=== PATIENT | female | born 1980 | race Caucasian/White ===

== ENCOUNTER 2018-06-02 19:08 | Emergency (ER) | payer OTHER, SELFPAY ==
[2018-06-02 20:08] LABS: Absolute Monocytes 0.8 K/uL (0.1-1.3); Absolute Neutrophil 6.9 K/uL (1.8-8.0); Basophils % 0.5 % (0-1.3); Eosinophils % 1.5 % (0-4.4); Hematocrit 35.8 % (36.0-45.0); Lymphocytes % 10.9 % (15.3-44.8); MPV 8.1 fL (7.6-11.3); Monocytes % 8.8 % (3.3-12.3); RBC Red Blood Cell Count 4.04 M/uL (3.86-4.86)
[2018-06-02 20:18] LABS: Bilirubin Direct 0.2 mg/dL (0-0.2); Potassium 3.6 mmol/L (3.5-5.1); Protein, Total 7.8 g/dL (6.4-8.2)
[2018-06-02] MEDS ORDERED: MORPHINE 4 MG/ML SYR ONE (20:31)
[2018-06-02] MEDS ORDERED: ONDANSETRON 4 MG/2 ML VIAL ONE (20:31)
[2018-06-02] MEDS ORDERED: NA CHLORIDE 0.9% 1,000 ML ONE ×2 (20:31→23:01)
[2018-06-02] MEDS ORDERED: FENTANYL CITR 100 MCG/2 ML ONE ×2 (20:57→22:47)
[2018-06-02] MEDS ORDERED: KETOROLAC 30 MG/ML INJ ONE (21:30)
[2018-06-02] MEDS ORDERED: NA CHLORIDE 0.9% 250 ML ONE (22:47)
[2018-06-02] MEDS ORDERED: VANCOMYCIN 1 GM/VIAL ONE (22:47)
[2018-06-02] MEDS ORDERED: GENTAMICIN SULF 80 MG/2ML INJ ONE (22:49)
[2018-06-02] MEDS ORDERED: NA CHLORIDE 0.9% 100 ML IV ONE (22:49)
--- NOTE | 2018-06-02 23:54 | ER ---
Nurse's Notes [facility] Name: Ana Garcia Age: 37 yrs Sex: Female : 1980 Arrival Date: 06/02/2018 Time: 19:12 Bed 15 Private MD: Diagnosis: intrabdominal abscess Presentation: 06/02 19:34 Presenting complaint: Patient states: ABD PAIN S/P HYSTERECTOMY. PT ON PAIN MEDICATION ak1 AT HOME. LAST BM TODAY, LIQUID ONLY. PT VOMITING STARTED TODAY. SX AT [facility] BY DR. NIXON 05/22/18. Transition of care: patient was not received from another setting of care. Onset of symptoms was June 02, 2018. Risk Assessment: Do you want to hurt yourself or someone else? Patient reports no desire to harm self or others. Initial Sepsis Screen: Does the patient meet any 2 criteria? No. Patient's initial sepsis screen is negative. Does the patient have a suspected source of infection? No. Patient's initial sepsis screen is negative. Care prior to arrival: None. 19:34 Method Of Arrival: Wheelchair ak1 19:34 Acuity: ALBER 3 ak1 Triage Assessment: 19:36 General: Appears uncomfortable, Behavior is agitated, anxious, crying, fussy. Pain: ak1 Complains of pain in abdomen. EENT: No signs and/or symptoms were reported regarding the EENT system. Neuro: No deficits noted. Cardiovascular: No deficits noted. Respiratory: No deficits noted. GI: Reports lower abdominal pain, upper abdominal pain, nausea, vomiting. : No signs and/or symptoms were reported regarding the genitourinary system. Derm: No signs and/or symptoms reported regarding the dermatologic system. Musculoskeletal: No signs and/or symptoms reported regarding the musculoskeletal system. 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 - Social history:: Smoking status: Patient/guardian denies using tobacco. - Ebola Screening: : No symptoms or risks identified at this time. Screenin:00 Abuse screen: Denies threats or abuse. Nutritional screening: No deficits noted. jb4 Tuberculosis screening: No symptoms or risk factors identified. Fall Risk IV access (20 points). Gait- Impaired (20 pts.). Assessment: 19:50 General: Appears comfortable, Behavior is cooperative, anxious, crying. Pain: Complains jb4 of pain in abdomen Pain does not radiate. Pain currently is 8 out of 10 on a pain scale. Quality of pain is described as crampy. Neuro: Level of Consciousness is awake, alert, obeys commands, Oriented to person, place, time, situation. Cardiovascular: cool/ dry skin. Respiratory: Airway is patent Respiratory effort is even, unlabored, Respiratory pattern is regular, symmetrical. GI: Bowel sounds present X 4 quads. Abd is soft X 4 quads Abdomen is tender to palpation X 4 quads. Reports cramping, diarrhea, nausea, vomiting. : No signs and/or symptoms were reported regarding the genitourinary system. EENT: No signs and/or symptoms were reported regarding the EENT system. Derm: Skin is intact, Skin is dry, Skin is pale, Skin temperature is cool. Musculoskeletal: Circulation, motion, and sensation intact. 20:45 Reassessment: No changes from previously documented assessment. Patient and/or family jb4 updated on plan of care and expected duration. Pain level reassessed. Patient is alert, oriented x 3, equal unlabored respirations, skin warm/dry/pink. Pt complaining of pain, Provider notified, See MAR for orders. 21:15 Reassessment: PT in CT, Ct called report pt is in pain, Provider notified see MAR for jb4 orders. 22:00 Reassessment: No changes from previously documented assessment. Patient and/or family jb4 updated on plan of care and expected duration. Pain level reassessed. Patient is alert, oriented x 3, equal unlabored respirations, skin warm/dry/pink. Patient states feeling better. 22:13 Reassessment: Patient and/or family updated on plan of care and expected duration. Pain jb4 level reassessed. Patient is alert, oriented x 3, equal unlabored respirations, skin warm/dry/pink. Pt reports increased pain, Provider notified. See MAR for orders. 23:25 Reassessment: No changes from previously documented assessment. Patient and/or family jb4 updated on plan of care and expected duration. Pain level reassessed. Patient is alert, oriented x 3, equal unlabored respirations, skin warm/dry/pink. Pt reports increased pain, Provider notified, See MAR for orders. Vital Signs: 19:36 BP 106 / 65; Pulse 114; Resp 22; Temp 98.1; Pulse Ox 99% on R/A; Weight 95.25 kg (R); ak1 Height 5 ft. 7 in. (170.18 cm) (R); Pain 10/10; 20:49 BP 113 / 70; Pulse 110; Resp 19; Pulse Ox 100% on R/A; mt 21:54 BP 111 / 65; Pulse 104; Resp 18; Pulse Ox 100% on R/A; mt 23:30 BP 110 / 65; Pulse 115; Resp 20; Pulse Ox 100% on R/A; jb4 06/03 00:00 BP 113 / 63; Pulse 117; Resp 20; Pulse Ox 100% on R/A; jb4 06/02 19:36 Body Mass Index 32.89 (95.25 kg, 170.18 cm) ak1 ED Course: 06/02 19:12 Patient arrived in ED. es 19:35 Triage completed. ak1 19:36 Arm band placed on Patient placed in waiting room, Patient notified of wait time. ak1 19:57 Godfrey Bee MD is Attending Physician. tw4 20:00 Tremaine Walker, RN is Primary Nurse. jb4 20:00 Patient has correct armband on for positive identification. Placed in gown. Bed in low jb4 position. Call light in reach. Side rails up X 1. Pulse ox on. NIBP on. 20:23 Inserted saline lock: 20 gauge in right antecubital area, using aseptic technique. oe 21:52 CT Abd/Pelvis - W/Contrast In Process Unspecified. EDMS 22:56 [facility]. eb 23:15 administrative approval given by Mynor Rivera/ Dr. So Palacios has accepted the eb patient in transfer/ patient is going to the [facility] / report to be called to [phone]. 06/03 00:38 No provider procedures requiring assistance completed. Patient transferred, IV remains jb4 in place. Administered Medications: 06/02 20:30 Drug: NS 0.9% 1000 ml Route: IV; Rate: 1 bolus; Site: right antecubital; jb4 22:00 Follow up: Response: No adverse reaction; IV Status: Completed infusion; IV Intake: jb4 1000ml 20:50 Drug: Zofran 4 mg Route: IVP; Site: right antecubital; jb4 23:54 Follow up: Response: No adverse reaction; Nausea is decreased jb4 20:52 Drug: fentaNYL (PF) 50 mcg Route: IVP; Site: right antecubital; jb4 23:58 Follow up: Response: No adverse reaction; Pain is decreased jb4 21:25 Drug: TORadol 30 mg Route: IVP; Site: right antecubital; jb4 06/03 00:00 Follow up: Response: No adverse reaction; Pain is decreased jb4 06/02 22:32 Drug: fentaNYL (PF) 50 mcg Route: IVP; Site: right antecubital; jb4 06/03 00:25 Follow up: Response: No adverse reaction; Pain is decreased jb4 06/02 23:18 Drug: NS 0.9% 1000 ml Route: IV; Rate: 1 bolus; Site: right antecubital; tl2 06/03 00:05 Follow up: Response: No adverse reaction; IV Status: Completed infusion; IV Intake: jb4 1000ml 06/02 23:25 Drug: Gentamicin 2 mg/kg Route: IVPB; Infused Over: 30 mins; Site: right antecubital; tl2 23:58 Follow up: Response: No adverse reaction; IV Status: Completed infusion; IV Intake: jb4 100ml 23:25 Drug: Dilaudid 0.5 mg Route: IVP; Site: right antecubital; tl2 06/03 00:25 Follow up: Response: No adverse reaction; Pain is decreased jb4 00:10 Drug: vancoMYCIN 1 grams Route: IVPB; Infused Over: 2 hrs; Site: right antecubital; jb4 00:29 Follow up: Response: No adverse reaction; IV Status: Infusion continued upon transfer jb4 00:20 Drug: Dilaudid 1 mg Route: IVP; Site: right antecubital; jb4 00:24 Follow up: Response: No adverse reaction; Pain is decreased jb4 Intake: 06/02 22:00 IV: 1000ml; Total: 1000ml. jb4 23:58 IV: 100ml; Total: 1100ml. jb4 06/03 00:05 IV: 1000ml; Total: 2100ml. jb4 Outcome: 06/02 23:53 ER care complete, transfer ordered by . tw4 06/03 00:38 Transferred by ground EMS to [facility]. jb4 Condition: stable Discharge instructions given to patient, family, Instructed on the need for transfer, Demonstrated understanding of instructions. 00:39 Patient left the ED. jb4 Signatures: Dispatcher [employer] EDMS Marycarmen Merchant Amber RN RN ak1 Constance Mustafa RN RN tl2 Tremaine Walker RN RN jb4 Jackson Walter Moriah mt Wadley, Terrence, MD MD tw4 Edilma Dupree Corrections: (The following items were deleted from the chart) 06/02 21:55 21:54 BP 111 / 65; Pulse 104bpm; Resp 16bpm; Pulse Ox 100% RA; mt oh 06/03 00:36 06/02 23:35 Reassessment: No changes from previously documented assessment. Patient jb4 and/or family updated on plan of care and expected duration. Pain level reassessed. Patient is alert, oriented x 3, equal unlabored respirations, skin warm/dry/pink. jb4
--- NOTE | 2018-06-02 23:54 | EDPHYS ---
Physician Documentation [facility] Name: Ana Garcia Age: 37 yrs Sex: Female : 1980 Arrival Date: 06/02/2018 Time: 19:12 Bed 15 Private MD: ED Physician Godfrey Bee HPI: 06/02 23:47 This 37 yrs old Female presents to ER via Wheelchair with complaints of tw4 Abdominal Pain, Vomiting, Nausea. 23:47 The patient presents with abdominal pain that is diffuse. Onset: The symptoms/episode tw4 began/occurred 2 week(s) ago. 23:48 The symptoms do not radiate. Associated signs and symptoms: none. The symptoms are tw4 described as dull. Modifying factors: The symptoms are alleviated by nothing, the symptoms are aggravated by pressure. Severity of pain: At its worst the pain was moderate in the emergency department the pain is unchanged. The patient has not experienced similar symptoms in the past. 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 - Social history:: Smoking status: Patient/guardian denies using tobacco. - Ebola Screening: : No symptoms or risks identified at this time. ROS: 23:48 Constitutional: Negative for fever, chills, and weight loss, Eyes: Negative for injury, tw4 pain, redness, and discharge, Cardiovascular: Negative for chest pain, palpitations, and edema, Respiratory: Negative for shortness of breath, cough, wheezing, and pleuritic chest pain, Back: Negative for injury and pain, MS/Extremity: Negative for injury and deformity, Skin: Negative for injury, rash, and discoloration, Neuro: Negative for headache, weakness, numbness, tingling, and seizure. 23:48 Abdomen/GI: Positive for abdominal pain, nausea and vomiting, nausea, vomiting, and tw4 diarrhea, nausea, vomiting, abdominal cramps, Negative for Exam: 23:48 Constitutional: This is a well developed, well nourished patient who is awake, alert, tw4 and in no acute distress. Head/Face: Normocephalic, atraumatic. Chest/axilla: Normal chest wall appearance and motion. Nontender with no deformity. No lesions are appreciated. Cardiovascular: Regular rate and rhythm with a normal S1 and S2. No gallops, murmurs, or rubs. Normal PMI, no JVD. No pulse deficits. Respiratory: Lungs have equal breath sounds bilaterally, clear to auscultation and percussion. No rales, rhonchi or wheezes noted. No increased work of breathing, no retractions or nasal flaring. MS/ Extremity: Pulses equal, no cyanosis. Neurovascular intact. Full, normal range of motion. Neuro: Awake and alert, GCS 15, oriented to person, place, time, and situation. Cranial nerves II-XII grossly intact. Motor strength 5/5 in all extremities. Sensory grossly intact. Cerebellar exam normal. Normal gait. Vital Signs: 19:36 BP 106 / 65; Pulse 114; Resp 22; Temp 98.1; Pulse Ox 99% on R/A; Weight 95.25 kg (R); ak1 Height 5 ft. 7 in. (170.18 cm) (R); Pain 10/10; 20:49 BP 113 / 70; Pulse 110; Resp 19; Pulse Ox 100% on R/A; mt 21:54 BP 111 / 65; Pulse 104; Resp 18; Pulse Ox 100% on R/A; mt 23:30 BP 110 / 65; Pulse 115; Resp 20; Pulse Ox 100% on R/A; jb4 06/03 00:00 BP 113 / 63; Pulse 117; Resp 20; Pulse Ox 100% on R/A; jb4 06/02 19:36 Body Mass Index 32.89 (95.25 kg, 170.18 cm) ak1 MDM: 06/02 19:57 Patient medically screened. tw4 23:48 Differential diagnosis: non-specific abd pain, pancreatitis, Peptic Ulcer Disease, tw4 Perf. Duodenal Ulcer, Perf. Gastric Ulcer, Peritonitis. Data reviewed: vital signs, nurses notes. Data interpreted: Pulse oximetry: Interpretation: normal. Counseling: I had a detailed discussion with the patient and/or guardian regarding: the historical points, exam findings, and any diagnostic results supporting the discharge/admit diagnosis, lab results, radiology results, the need to transfer to another facility, [facility] does not immediately have the required specialist. Other consultation: D/W Dr Palacios at [facility] who accepts the patient [id number]. 06/02 19:56 Order name: Basic Metabolic Panel; Complete Time: 22:24 06/02 22:24 Interpretation: Normal except: GLUC 133; GFR 53. 06/02 19:56 Order name: CBC with Diff; Complete Time: 22:25 06/02 22:25 Interpretation: HGB 11.9; HCT 35.8. 06/02 19:56 Order name: Creatinine for Radiology; Complete Time: 22:25 06/02 22:25 Interpretation: Normal except: GFR 58. 06/02 19:56 Order name: Hepatic Function; Complete Time: 22:25 06/02 22:25 Interpretation: Normal except: GLOB 3.8. 06/02 19:56 Order name: Lipase; Complete Time: 22:26 06/02 22:26 Interpretation: Within normal limits: LIP 160. 06/02 20:17 Order name: CT Abd/Pelvis - W/Contrast 06/02 19:56 Order name: IV Saline Lock; Complete Time: 20:35 06/02 19:56 Order name: Labs collected and sent; Complete Time: 20:18 tw4 Administered Medications: 20:30 Drug: NS 0.9% 1000 ml Route: IV; Rate: 1 bolus; Site: right antecubital; jb4 22:00 Follow up: Response: No adverse reaction; IV Status: Completed infusion; IV Intake: jb4 1000ml 20:50 Drug: Zofran 4 mg Route: IVP; Site: right antecubital; jb4 23:54 Follow up: Response: No adverse reaction; Nausea is decreased jb4 20:52 Drug: fentaNYL (PF) 50 mcg Route: IVP; Site: right antecubital; jb4 23:58 Follow up: Response: No adverse reaction; Pain is decreased jb4 21:25 Drug: TORadol 30 mg Route: IVP; Site: right antecubital; jb4 06/03 00:00 Follow up: Response: No adverse reaction; Pain is decreased 4 06/02 22:32 Drug: fentaNYL (PF) 50 mcg Route: IVP; Site: right antecubital; jb4 06/03 00:25 Follow up: Response: No adverse reaction; Pain is decreased 4 06/02 23:18 Drug: NS 0.9% 1000 ml Route: IV; Rate: 1 bolus; Site: right antecubital; tl2 06/03 00:05 Follow up: Response: No adverse reaction; IV Status: Completed infusion; IV Intake: jb4 1000ml 06/02 23:25 Drug: Gentamicin 2 mg/kg Route: IVPB; Infused Over: 30 mins; Site: right antecubital; tl2 23:58 Follow up: Response: No adverse reaction; IV Status: Completed infusion; IV Intake: jb4 100ml 23:25 Drug: Dilaudid 0.5 mg Route: IVP; Site: right antecubital; tl2 06/03 00:25 Follow up: Response: No adverse reaction; Pain is decreased 4 00:10 Drug: vancoMYCIN 1 grams Route: IVPB; Infused Over: 2 hrs; Site: right antecubital; jb4 00:29 Follow up: Response: No adverse reaction; IV Status: Infusion continued upon transfer jb4 00:20 Drug: Dilaudid 1 mg Route: IVP; Site: right antecubital; jb4 00:24 Follow up: Response: No adverse reaction; Pain is decreased 4 Disposition: 06/02/18 23:53 Transfer ordered to [facility]. Diagnosis is intrabdominal abscess. - Reason for transfer: Higher level of care. - Accepting physician is Dr Palacios. - Condition is Stable. - Problem is an ongoing problem. - Symptoms have improved. Signatures: Dispatcher [employer] EDMS Mckenna Fitzgerald RN RN ak1 Constance Mustafa RN RN tl2 Tremaine Walker RN RN jb4 Godfrey Bee MD MD tw4 Corrections: (The following items were deleted from the chart) 00:00 06/02 19:56 Urine Test ordered. 4 [facility] 06/03 00:30 06/02 19:56 Urine Dipstick-Ancillary ordered. 4 [facility] 06/03 00:39 06/02 23:53 06/02/2018 23:53 Transfer ordered to [facility]. jb4 Diagnosis is intrabdominal abscess. Reason for transfer: Higher level of care. Accepting physician is Dr Palacios. Condition is Stable. Problem is an ongoing problem. Symptoms have improved. tw4
[2018-06-03] MEDS ORDERED: HYDROMORPHONE HCL 1 MG/ML INJ ONE (00:24)
--- NOTE | 2018-06-03 11:57 | RAD REPORT ---
EXAM DESCRIPTION: CT Abdomen and Pelvis With Intravenous Contrast CLINICAL HISTORY: The patient is 37 years old and is Female; ABD PAIN/RECENT HYSTERECTOMY TECHNIQUE: Axial computed tomography images of the abdomen and pelvis with intravenous contrast. S agittal and coronal reformatted images were created and reviewed. This CT exam was performed using one or more of the following dose reduction techniques: automated exposure control, adjustment of t he mA and/or kV according to patient size, and/or use of iterative reconstruction technique. COMPARISON: None. FINDINGS: LUNG BASES: Lung bases are clear. HEART: Visualized heart is unremarkable. ABDOMEN: LIVER: Unremarkable. No mass. GALLBLADDER AND BILE DUCTS: Unremarkable. No calcified stones. No ductal dilation. PANCREAS: Unremarkable. No mass. No ductal dilation. SPLEEN: Unremarkable. No splenomegaly. ADRENALS: Unremarkable. No mass. KIDNEYS AND URETERS: Unremarkable. No solid mass. No hydronephrosis. STOMACH AND BOWEL: Unremarkable. No obstruction. No mucosal thickening. PELVIS: APPENDIX: The appendix is seen and is within normal limits. Small periappendiceal fluid likely due to increased pelvic fluid. BLADDER: There is a gas containing heterogenous fluid collection in the pelvis measuring 7.5 x 7.1 x 9.1 cm. This findings exerts mass effect on urinary bladder and rectum. REPRODUCTIVE: The uterus is not well seen. 4 x 3.9 cm left ovarian cyst. ABDOMEN and PELVIS: INTRAPERITONEAL SPACE: Small amount of free pelvic fluid. Free fluid is also seen in perisplenic space. BONES/JOINTS: No acute fracture. No dislocation. Transitional lumbosacral anatomy. SOFT TISSUES: Unremarkable. VASCULATURE: Unremarkable. No abdominal aortic aneurysm. LYMPH NODES: Unremarkable. No enlarged lymph nodes. IMPRESSION: 1. Status post hysterectomy with a large incompletely characterized gas containing heter ogenous pelvic fluid collection with surrounding fat stranding concerning for abscess/hematoma. Findi ng highly concerning for postoperative abscess considering recent hysterectomy. Recommend prompt foll ow-up with pelvic US. Reference: J Am Analisa Radiol 2013;10:675-681. 2. Free pelvic and perisplenic fluid concerning for hemoperitoneum. 3. 4 cm left ovarian cyst. THIS REPORT CONTAINS FINDINGS THAT MAY BE CRITICAL TO PATIENT'S CARE: The findings were verbally discussed via telephone conference with Godfrey Bee by Dr. Ricci on 06/02/2018 10:24 PM CDT. The results were acknowledged and understood. Electronically signed by: Augustine Ricci DO 06/02/2018 10:25 PM CDT Due to temporary technical issues with the PACS/Fluency reporting system, reports are being signed by the in house radiologist as a courtesy to ensure prompt reporting. The interpreting radiologist is f ully responsible for the content of the report.
== END 2018-06-03 00:39 | disposition designated cancer center or children's hospital (05) ==
LOC: ER 19:08
DX: K65.1 Peritoneal abscess (principal); Z88.0 Allergy status to penicillin; Z88.2 Allergy status to sulfonamides; Z88.5 Allergy status to narcotic agent
CPT/HCPCS: 36415; 74177; 80048; 80076; 83690; 85025; 96361; 96365; 96367; 96375; 99285; J1170; J1580; J2405; J3010; J7030; Q9967